=== PATIENT | female | born 1970 | race Caucasian/White ===

== ENCOUNTER 2018-08-23 11:16 | Outpatient (CLI) | payer BC | END 2018-08-23 11:17 | disposition home or self-care (01) | LOC: BICMAMMO 11:16 | PROVIDERS: ATTEND Family Medicine | DX: Z12.31 Encounter for screening mammogram for malignant neoplasm of breast (principal); Z80.3 Family history of malignant neoplasm of breast | CPT/HCPCS: 77063; 77067 ==

== ENCOUNTER 2018-08-30 10:23 | Outpatient (CLI) | payer BC ==
--- NOTE | 2018-08-30 15:55 | CT ---
CT ABDOMEN AND PELVIS WITH CONTRAST: Date: 08/30/18 HISTORY: R10.84 abdominal pain. R63.4 weight loss. R19.8 change in bowel habits. COMPARISON: None. FINDINGS: Note this is a CT abdomen and pelvis with contrast only, not a with and without contrast. The lung bases are clear. No pericardial effusion. There are multiple hypodensities in the liver which appear to have some centripetal peripheral enhanc ement, although it is only a single phase of contrast and further delayed imaging is necessary. There was an attempt to contact the patient to come back for a delayed phase of contrast, although we were unable to contact the patient. Hepatic segment Yann mass measures 2.4 x 2.2 cm. Hepatic segment IVb m ass measures 1.5 x 1.7 cm. Spleen is unremarkable. No hydronephrosis. Aortoiliac contour is nonaneurysmal. No retroperitoneal ad enopathy. The appendix is felt to be visualized and appears normal. No dilated loops of large or small bowel. O rally administered contrast is seen throughout the small bowel and within the ascending colon. Pancre as is unremarkable. Mild degenerative disease of the pubic symphysis. No acute osseous abnormality. IMPRESSION: 1. No acute inflammatory process in the abdomen or pelvis. 2. Two separate hepatic masses as described above. On the single phase of contrast, this appears to have imaging appearance of hemangiomas, though a dedicated liver protocol CT or MRI in 6 months is re commended to fully evaluate these masses. 3. Normal appendix. POS: [facility]
== END 2018-08-30 10:24 | disposition home or self-care (01) ==
LOC: SCSCT 10:23
PROVIDERS: ATTEND Family Medicine
DX: R10.84 Generalized abdominal pain (principal); R63.4 Abnormal weight loss; R19.8 Other specified symptoms and signs involving the digestive system and abdomen; R16.0 Hepatomegaly, not elsewhere classified
CPT/HCPCS: 74178

== ENCOUNTER 2018-09-25 13:03 | Outpatient (CLI) | payer BC ==
--- NOTE | 2018-09-25 16:12 | MRI ---
MRI ABDOMEN WITH AND WITHOUT CONTRAST: 09/25/18 HISTORY: Followup abnormality seen on recent CT examination. Hepatic mass. COMPARISON: CT abdomen and pelvis 08/30/18. FINDINGS: Within hepatic segment Yann, there is a T2 hyperintense mass with peripheral central enhancement sugge stive of hemangioma measuring 2.8 x 2.1 cm. Hepatic segment V is another T2 hyperintense mass with pe ripheral central enhancement suggesting hemangioma measuring 1.7 x 1 cm. There is a small cyst in hep atic segment V which does not enhance. No suspicious hepatic mass. The liver, spleen, pancreas unremarkable. No retroperitoneal adenopathy. Aortic contour is normal. IMPRESSION: 1. The findings of the liver are confirmed as hemangiomas. 2. Simple hepatic segment V small cyst. POS: [facility]
== END 2018-09-25 13:04 | disposition home or self-care (01) ==
LOC: SCSMRI 13:03
PROVIDERS: ATTEND Internal Medicine Gastroenterology
DX: R16.0 Hepatomegaly, not elsewhere classified (principal); D18.03 Hemangioma of intra-abdominal structures; K76.89 Other specified diseases of liver
CPT/HCPCS: 74183

== ENCOUNTER 2019-06-11 08:00 | Outpatient (CLI) | payer BC ==
--- NOTE | 2019-06-11 10:10 | BD ---
DEXA BONE DENSITY EXAM: HISTORY: A 49-year-old postmenopausal female for screening. COMPARISON: 05/19/2016. FINDINGS: Lumbar Spine: BMD (g/cm2) L1 0.727 T-Score: -2.4 L2 0.793 T-Score: -2.1 L3 0.705 T-Score: -3.4 L4 0.656 T-Score: -3.7 L1-L4 0.718 T-Score: -3.0 Femoral Neck: 0.598 T-Score: -2.3 Total Femur: 0.655 T-Score: -2.4 Impression: Osteoporosis. POS: [facility]
== END 2019-06-11 08:01 | disposition home or self-care (01) ==
LOC: BICMAMMO 08:00
PROVIDERS: ATTEND Family Medicine
DX: M85.859 Other specified disorders of bone density and structure, unspecified thigh (principal); M81.0 Age-related osteoporosis without current pathological fracture
CPT/HCPCS: 77080

== ENCOUNTER 2019-09-11 08:48 | Outpatient (CLI) | payer BC ==
--- NOTE | 2019-09-11 09:40 | MMO ---
Bilateral MAMMO Bilat Screen [facility]. CLINICAL HISTORY: Patient is 49 years old and is seen for screening. The patient has the following family history of breast cancer: maternal grandfather, at age 49, malignant (generic). The patient has no personal history of cancer. VIEWS: The views performed were: bilateral craniocaudal with tomosynthesis and bilateral mediolateral oblique with tomosynthesis. FILMS COMPARED: The present examination has been compared to prior imaging studies performed at [facility] on 12/27/2012, 12/03/2014, 05/19/2016 and 08/23/2018. This study has been interpreted with the assistance of computer-aided detection. MAMMOGRAM FINDINGS: The breasts are extremely dense, which may lower the sensitivity of mammography. There are no suspicious masses, suspicious calcifications, or new areas of architectural distortion. IMPRESSION: THERE IS NO MAMMOGRAPHIC EVIDENCE OF MALIGNANCY. A ROUTINE FOLLOW-UP MAMMOGRAM IN 1 YEAR IS RECOMMENDED. THE RESULTS OF THIS EXAM WERE SENT TO THE PATIENT. ACR BI-RADS Category 1 - Negative MAMMOGRAPHY NOTE: 1. A negative mammogram report should not delay a biopsy if a dominant of clinically suspicious mass is present. 2. Approximately 10% to 15% of breast cancers are not detected by mammography. 3. Adenosis and dense breasts may obscure an underlying neoplasm. Reported by: ALEX CRANE MD Electonically Signed: [id number]
== END 2019-09-11 08:49 | disposition home or self-care (01) ==
LOC: BICMAMMO 08:48
PROVIDERS: ATTEND Family Medicine
DX: Z12.31 Encounter for screening mammogram for malignant neoplasm of breast (principal); Z80.3 Family history of malignant neoplasm of breast
CPT/HCPCS: 77063; 77067

== ENCOUNTER 2020-09-15 10:46 | Outpatient (CLI) | payer BC ==
--- NOTE | 2020-09-15 11:14 | MMO ---
Bilateral MAMMO Bilat Screen [facility]. CLINICAL HISTORY: Patient is 50 years old and is seen for screening. The patient has the following family history of breast cancer: maternal grandmother, at age 49, malignant (generic). The patient has no personal history of cancer. VIEWS: The views performed were: bilateral craniocaudal with tomosynthesis and bilateral mediolateral oblique with tomosynthesis. FILMS COMPARED: The present examination has been compared to prior imaging studies performed at [facility] on 12/03/2014, 05/19/2016, 08/23/2018 and 09/11/2019. This study has been interpreted with the assistance of computer-aided detection. MAMMOGRAM FINDINGS: The breasts are heterogeneously dense, which could obscure a lesion on mammography. There are no suspicious masses, suspicious calcifications, or new areas of architectural distortion. IMPRESSION: THERE IS NO MAMMOGRAPHIC EVIDENCE OF MALIGNANCY. A ROUTINE FOLLOW-UP MAMMOGRAM IN 1 YEAR IS RECOMMENDED. THE RESULTS OF THIS EXAM WERE SENT TO THE PATIENT. ACR BI-RADS Category 1 - Negative MAMMOGRAPHY NOTE: 1. A negative mammogram report should not delay a biopsy if a dominant of clinically suspicious mass is present. 2. Approximately 10% to 15% of breast cancers are not detected by mammography. 3. Adenosis and dense breasts may obscure an underlying neoplasm. Reported by: ORA BORJA MD Electonically Signed: [id number]
== END 2020-09-15 10:47 | disposition home or self-care (01) ==
LOC: BICMAMMO 10:46
PROVIDERS: ATTEND Family Medicine
DX: Z12.31 Encounter for screening mammogram for malignant neoplasm of breast (principal); Z80.3 Family history of malignant neoplasm of breast
CPT/HCPCS: 77063; 77067

== ENCOUNTER 2021-03-12 01:25 | Inpatient (IN) | payer BC ==
[2021-03-12] MEDS ORDERED: Ketorolac Tromethamine 30 MG/ML VIAL ONE (02:10)
[2021-03-12 02:29] LABS: #Eosinphils 0.1 thou/uL (0.0-0.7); #Monocytes 0.9 thou/uL (0.11-0.59); #Neutrophils 14.7 thou/uL (1.40-6.50); %Basophils 0.1 % (0.0-1.0); %Eosinophils 0.3 % (0.0-10.0); %Monocytes 5.6 % (0.0-10.0); Hemoglobin 11.5 g/dL (12.0-16.0); Mean Corpuscular HGB CONC 32.9 g/dL (32.0-36.0); Mean Corpuscular Hemoglobin 31.3 pg (27.0-31.0); Mean Corpuscular Volume 95.1 fL (78.0-98.0); Mean Platelet Volume 5.8 fL (7.4-10.4); Platelet Count 312 thou/uL (130-400); RBC Distribution Width 11.3 % (11.5-14.5); Red Blood Cell (RBC) Count 3.68 mill/uL (4.20-5.40); White Blood Cell (WBC) Count 16.7 thou/uL (4.8-10.8)
[2021-03-12 02:50] LABS: ALT (SGPT) 57 U/L (8-55); AST (SGOT) 152 U/L (5-34); Albumin 3.8 g/dL (3.5-5.0); Alkaline Phosphatase 62 U/L (40-110); Anion Gap 19 mmol/L (10-20); BUN (Urea Nitrogen) 16 mg/dL (9.8-20.1); Bilirubin, Total 0.2 mg/dL (0.2-1.2); Calc. Creatinine Clearance 0 mL/min (70-130); Calcium 8.7 mg/dL (7.8-10.44); Carbon Dioxide 17 mmol/L (22-29); Chloride 105 mmol/L (98-107); Globulin 2.5 g/dL (2.4-3.5); Glucose 91 mg/dL (70-105); Potassium 3.7 mmol/L (3.5-5.1); Protein, Total 6.3 g/dL (6.0-8.3); Sodium 137 mmol/L (136-145)
[2021-03-12] MEDS ORDERED: Dextrose 50% Abboject 50 ML SYRINGE SLOW IVP PRN (05:07)
[2021-03-12] MEDS ORDERED: Ondansetron ODT 4 MG TAB PO PRN (05:07)
[2021-03-12] MEDS ORDERED: Ondansetron PF 4 MG/2 ML Vial IVP PRN (05:07)
[2021-03-12] MEDS ORDERED: hydrALAZINE 20 MG/ML VIAL SLOW IVP PRN (05:07)
[2021-03-12] MEDS ORDERED: Dextrose 5% in Water 1,000 ML IV PRN (05:07)
[2021-03-12] MEDS: traMADol HCl 50 MG TAB PO PRN ×3 (05:30→17:56)
[2021-03-12] MEDS: traMADol HCl 50 MG TAB PO SCH ×4 (05:30→23:58)
[2021-03-12] MEDS: Acetaminophen 500 MG TAB PO SCH ×4 (05:31→23:57)
[2021-03-12 05:45] VITALS: BMI 18.6
[2021-03-12] MEDS: Sodium Chloride 0.9% 1,000 ML IV SCH ×3 (07:25→12:36)
[2021-03-12 08:21] LABS: Anion Gap 13 mmol/L (10-20); BUN (Urea Nitrogen) 17 mg/dL (9.8-20.1); Calc. Creatinine Clearance 70 mL/min (70-130); Calcium 8.4 mg/dL (7.8-10.44); Carbon Dioxide 23 mmol/L (22-29); Chloride 103 mmol/L (98-107); Glucose 117 mg/dL (70-105); Potassium 4.3 mmol/L (3.5-5.1); Sodium 135 mmol/L (136-145)
[2021-03-12] MEDS: ALPRAZolam 0.5 MG TAB PO SCH ×2 (08:25→20:09)
[2021-03-12] MEDS: Famotidine 20 MG TAB PO SCH ×2 (08:25→20:09)
[2021-03-12] MEDS: Gabapentin 300 MG CAP PO SCH ×2 (08:26→20:09)
[2021-03-12] MEDS: Bupropion 150 MG XL TAB PO SCH (08:26)
[2021-03-12] MEDS: FLUoxetine HCl 20 MG CAP PO SCH (08:26)
[2021-03-12 08:34] LABS: CK (CPK) 4289 U/L (29-168)
[2021-03-12 08:49] LABS: SARS-CoV-2 PCR by NAA Not Detected (NotDetected)
[2021-03-12] MEDS ORDERED: Non-Formulary Item 1 EACH (Bupropion Hcl [Bupropion Xl] 300 MG Tab.Er.24h) PO SCH (09:00)
[2021-03-12] MEDS: Cyclobenzaprine 10 MG TAB PO PRN ×2 (09:20→17:57)
[2021-03-12] MEDS: traZODone HCl 50 MG TAB PO SCH (20:10)
[2021-03-12] MEDS ORDERED: Non-Formulary Item 1 EACH (Trazodone Hcl [Trazodone Hcl] 100 MG Tablet) PO SCH (21:00)
[2021-03-13] MEDS: traMADol HCl 50 MG TAB PO SCH ×4 (05:24→23:00)
[2021-03-13] MEDS: Cyclobenzaprine 10 MG TAB PO PRN (05:24)
[2021-03-13] MEDS: Acetaminophen 500 MG TAB PO SCH ×4 (05:24→23:00)
[2021-03-13] MEDS: ALPRAZolam 0.5 MG TAB PO SCH ×2 (08:51→20:30)
[2021-03-13] MEDS: Bupropion 150 MG XL TAB PO SCH (08:51)
[2021-03-13] MEDS: Gabapentin 300 MG CAP PO SCH ×2 (08:52→20:30)
[2021-03-13] MEDS: FLUoxetine HCl 20 MG CAP PO SCH (08:56)
[2021-03-13] MEDS: Folic Acid 1 MG TAB PO SCH (08:56)
[2021-03-13] MEDS: Enoxaparin Sodium 40 MG/0.4 ML SYRINGE SC SCH (08:56)
[2021-03-13] MEDS: Multivit, Therapeutic 1 TAB PO SCH (08:56)
[2021-03-13] MEDS: Thiamine 100 MG TAB PO SCH (08:56)
[2021-03-13] MEDS ORDERED: Oxazepam 10 MG CAP PO SCH (09:00)
[2021-03-13] MEDS: tiZANidine HCl 4 MG TAB PO SCH ×2 (11:03→18:38)
[2021-03-13] MEDS: traMADol HCl 50 MG TAB PO PRN ×2 (11:05→17:31)
[2021-03-13] MEDS: Ketorolac Tromethamine 30 MG/ML VIAL IVP PRN (12:24)
[2021-03-13] MEDS ORDERED: Sodium Chloride 0.9% 500 ML IV SCH ×2 (16:15→17:15)
[2021-03-13 16:30] LABS: #Eosinphils 0.1 thou/uL (0.0-0.7); #Monocytes 0.4 thou/uL (0.11-0.59); #Neutrophils 5.9 thou/uL (1.40-6.50); %Basophils 0.2 % (0.0-1.0); %Eosinophils 1.9 % (0.0-10.0); %Lymphocytes 13.6 % (21.0-51.0); %Monocytes 5.9 % (0.0-10.0); %Neutrophils 78.3 % (42.0-75.0); Hemoglobin 8.9 g/dL (12.0-16.0); Mean Corpuscular HGB CONC 33.4 g/dL (32.0-36.0); Mean Corpuscular Hemoglobin 32.3 pg (27.0-31.0); Mean Corpuscular Volume 96.6 fL (78.0-98.0); Mean Platelet Volume 6.1 fL (7.4-10.4); Platelet Count 222 thou/uL (130-400); RBC Distribution Width 11.5 % (11.5-14.5); Red Blood Cell (RBC) Count 2.77 mill/uL (4.20-5.40); White Blood Cell (WBC) Count 7.5 thou/uL (4.8-10.8)
[2021-03-13 16:50] LABS: Anion Gap 9 mmol/L (10-20); BUN (Urea Nitrogen) 11 mg/dL (9.8-20.1); CK (CPK) 1588 U/L (29-168); Calc. Creatinine Clearance 62 mL/min (70-130); Calcium 8.4 mg/dL (7.8-10.44); Carbon Dioxide 25 mmol/L (22-29); Chloride 107 mmol/L (98-107); Glucose 119 mg/dL (70-105); Sodium 137 mmol/L (136-145)
[2021-03-13] MEDS ORDERED: Hydrocortisone Sod Succ/PF 100 mg/2 ml Vial IVP SCH (17:30)
[2021-03-13] MEDS: traZODone HCl 50 MG TAB PO SCH (20:30)
[2021-03-13] MEDS: Ascorbic Acid 500 mg Chewable Tablet PO SCH (20:30)
[2021-03-14] MEDS: Hydrocortisone Sod Succ/PF 100 mg/2 ml Vial IVP SCH ×3 (01:05→17:19)
[2021-03-14] MEDS: tiZANidine HCl 4 MG TAB PO SCH ×3 (01:05→09:01)
[2021-03-14] MEDS: Acetaminophen 500 MG TAB PO SCH ×4 (06:26→23:05)
[2021-03-14] MEDS: traMADol HCl 50 MG TAB PO SCH ×4 (06:26→23:06)
[2021-03-14 07:55] LABS: #Lymphocytes 0.8 thou/uL (1.20-3.40); #Monocytes 0.3 thou/uL (0.11-0.59); #Neutrophils 5.9 thou/uL (1.40-6.50); %Basophils 0.5 % (0.0-1.0); %Eosinophils 0.3 % (0.0-10.0); %Lymphocytes 11.2 % (21.0-51.0); %Monocytes 4.8 % (0.0-10.0); %Neutrophils 83.1 % (42.0-75.0); Hemoglobin 8.5 g/dL (12.0-16.0); Mean Corpuscular HGB CONC 32.4 g/dL (32.0-36.0); Mean Corpuscular Hemoglobin 31.4 pg (27.0-31.0); Mean Corpuscular Volume 96.8 fL (78.0-98.0); Mean Platelet Volume 5.8 fL (7.4-10.4); Platelet Count 215 thou/uL (130-400); RBC Distribution Width 11.6 % (11.5-14.5); Red Blood Cell (RBC) Count 2.72 mill/uL (4.20-5.40); White Blood Cell (WBC) Count 7.1 thou/uL (4.8-10.8)
[2021-03-14] MEDS: Ferrous Sulfate 325 MG TAB PO SCH ×2 (09:00→17:18)
[2021-03-14] MEDS: Folic Acid 1 MG TAB PO SCH (09:00)
[2021-03-14] MEDS: FLUoxetine HCl 20 MG CAP PO SCH (09:00)
[2021-03-14] MEDS: Ascorbic Acid 500 mg Chewable Tablet PO SCH ×2 (09:00→20:22)
[2021-03-14] MEDS: Bupropion 150 MG XL TAB PO SCH (09:00)
[2021-03-14] MEDS: Thiamine 100 MG TAB PO SCH (09:00)
[2021-03-14] MEDS: Multivit, Therapeutic 1 TAB PO SCH (09:00)
[2021-03-14] MEDS: Enoxaparin Sodium 40 MG/0.4 ML SYRINGE SC SCH (09:01)
[2021-03-14] MEDS: Gabapentin 300 MG CAP PO SCH ×2 (09:01→20:22)
[2021-03-14] MEDS: ALPRAZolam 0.5 MG TAB PO SCH ×2 (09:01→20:22)
[2021-03-14] MEDS ORDERED: Sodium Chloride 0.9% 500 ML IV SCH (11:00)
[2021-03-14] MEDS: Ketorolac Tromethamine 30 MG/ML VIAL IVP PRN ×2 (13:13→19:31)
[2021-03-14] MEDS: traMADol HCl 50 MG TAB PO PRN (19:30)
[2021-03-14] MEDS: traZODone HCl 50 MG TAB PO SCH (20:22)
[2021-03-14] MEDS: Cyclobenzaprine 10 MG TAB PO PRN (23:39)
[2021-03-15] MEDS: Hydrocortisone Sod Succ/PF 100 mg/2 ml Vial IVP SCH ×2 (02:31→10:22)
[2021-03-15] MEDS: Ketorolac Tromethamine 30 MG/ML VIAL IVP PRN (02:31)
[2021-03-15] MEDS: Acetaminophen 500 MG TAB PO SCH ×2 (06:18→12:23)
[2021-03-15] MEDS: traMADol HCl 50 MG TAB PO SCH ×2 (06:18→12:23)
[2021-03-15] MEDS: Gabapentin 300 MG CAP PO SCH (08:02)
[2021-03-15] MEDS: Enoxaparin Sodium 40 MG/0.4 ML SYRINGE SC SCH (08:03)
[2021-03-15] MEDS: ALPRAZolam 0.5 MG TAB PO SCH (08:03)
[2021-03-15] MEDS: Multivit, Therapeutic 1 TAB PO SCH (08:03)
[2021-03-15] MEDS: Ascorbic Acid 500 mg Chewable Tablet PO SCH (08:03)
[2021-03-15] MEDS: FLUoxetine HCl 20 MG CAP PO SCH (08:03)
[2021-03-15] MEDS: Ferrous Sulfate 325 MG TAB PO SCH (08:03)
[2021-03-15] MEDS: Bupropion 150 MG XL TAB PO SCH (08:03)
[2021-03-15] MEDS: Folic Acid 1 MG TAB PO SCH (08:03)
[2021-03-15] MEDS: Thiamine 100 MG TAB PO SCH (08:03)
[2021-03-15] MEDS ORDERED: Senokot S 8.6-50 MG TAB PO SCH (09:00)
[2021-03-15] MEDS: Cyclobenzaprine 10 MG TAB PO PRN (10:22)
[2021-03-15] MEDS ORDERED: Cyclobenzaprine 10 MG TAB PO PRN (10:45)
[2021-03-15 12:51] VITALS: BP 109/71; TEMP 98
[2021-03-15] MEDS ORDERED: Ibuprofen 600 MG TAB PO PRN (14:00)
[2021-03-15] MEDS ORDERED: Gabapentin 300 MG CAP PO SCH (15:00)
[2021-03-16] MEDS ORDERED: Polyethylene Glycol 3350 17 GM Packet PO SCH (09:00)
== END 2021-03-15 14:45 | DRG 964 ==
LOC: ERS 01:25 → SJJU 04:19 → INTOOBSV 04:19 → OBSVTOIN 03-14 11:26
PROVIDERS: ADMIT Surgery; ATTEND Surgery
DX: S32.592A Other specified fracture of left pubis, initial encounter for closed fracture (principal); S22.42XA Multiple fractures of ribs, left side, initial encounter for closed fracture; T79.6XXA Traumatic ischemia of muscle, initial encounter; E27.40 Unspecified adrenocortical insufficiency; W18.30XA Fall on same level, unspecified, initial encounter; F32.9 Major depressive disorder, single episode, unspecified; F41.9 Anxiety disorder, unspecified; M19.90 Unspecified osteoarthritis, unspecified site; Z90.710 Acquired absence of both cervix and uterus
CPT/HCPCS: 36415; 71045; 72100; 72170; 72192; 80048; 80053; 82533; 82550; 84484; 85025; 87635; 93005; 96372; 96374; 96375; 96376; G0378; J1650; J1720; J1885; U0003; U0005

== ENCOUNTER 2021-09-22 09:06 | Outpatient (CLI) | payer BC | END 2021-09-22 09:07 | disposition home or self-care (01) | LOC: BICMAMMO 09:06 | PROVIDERS: ATTEND Family Medicine | DX: Z12.31 Encounter for screening mammogram for malignant neoplasm of breast (principal); Z80.3 Family history of malignant neoplasm of breast | CPT/HCPCS: 77063; 77067 ==

== ENCOUNTER 2023-12-15 12:05 | Outpatient (CLI) | payer BC | END 2023-12-15 12:06 | disposition home or self-care (01) | LOC: SCSRAD 12:05 | PROVIDERS: ATTEND Family Medicine | DX: S99.922A Unspecified injury of left foot, initial encounter (principal) ==